=== PATIENT | female | born 1970 | race American Indian/Alaskan Native ===

== ENCOUNTER 2016-07-15 10:28 | Emergency (ER) | payer OTHER ==
[2016-07-15 10:47] VITALS: BP 100/65
[2016-07-15] MEDS ORDERED: TYLENOL PO ONE (11:03)
[2016-07-15] MEDS ORDERED: MOTRIN PO ONE (11:03)
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
== END 2016-07-15 12:18 | disposition home or self-care (01) ==
LOC: ED 10:28
DX: M54.2 Cervicalgia (principal); M54.5 Low back pain; V49.69XA Unspecified car occupant injured in collision with other motor vehicles in traffic accident, initial encounter; Y93.89 Activity, other specified; Y99.8 Other external cause status; Y92.89 Other specified places as the place of occurrence of the external cause
CPT/HCPCS: 99282